=== PATIENT | male | born 1965 | race American Indian/Alaskan Native ===

== ENCOUNTER 2017-08-05 12:40 | Emergency (ER) | payer SELFPAY ==
[2017-08-05 13:28] LABS: BUN/Creatinine Ratio 11; Blood Urea Nitrogen 8 mg/dL (9-20); Calcium 9.2 mg/dL (8.4-10.2); Hemolysis Index 5
[2017-08-05 13:32] LABS: Basophils # (Auto) 0.1 K/mm3 (0.0-0.1); Eosinophils % (Auto) 0.8 % (0.0-4.3); Hematocrit 47.9 % (35.5-45.6); Hemoglobin 15.8 gm/dl (11.8-15.2); Lymphocytes # (Auto) 1.8 K/mm3 (1.2-5.4); Lymphocytes % (Auto) 37.4 % (13.4-35.0); Mean Corpuscular HGB Conc 33 % (32-34); Mean Corpuscular Hemoglobin 30 pg (28-32); Mean Corpuscular Volume 91 fl (84-94); Monocytes # (Auto) 0.4 K/mm3 (0.0-0.8); Platelet Count 164 K/mm3 (140-440); Red Blood Count 5.29 M/mm3 (3.65-5.03); Red Cell Distribution Width 12.5 % (13.2-15.2)
--- NOTE | 2017-08-05 14:31 | XRay Report ---
ROUTINE CHEST, TWO VIEWS: SOB. PA and lateral views demonstrate the heart and mediastinal contour to be of normal size and shape. The lungs are clear and fully expanded and the soft tissues and bony structures are normal. IMPRESSION: Normal study.
[2017-08-05] MEDS ORDERED: CATAPRES PO ONE (15:04)
[2017-08-05] MEDS ORDERED: GLUCOPHAGE PO ONE (15:04)
--- NOTE | 2017-08-05 15:10 | Emergency Department Report ---
HPI - General Chief Complaint: Dyspnea/Respdistress Time Seen by Provider: 08/05/17 14:43 - HPI HPI: The patient is a 52-year-old male who presents for evaluation of chest pain and dyspnea. The patient reports 3 days of on and off dyspnea and chest pain, moderate in severity, exacerbated with exertion or ambulation, improved with rest, chest pain aching in quality. The patient denies fever, neck pain, parasthesias, dyspnea, cough, hemoptysis, palpitations, dizziness, syncope, unilateral leg swelling, calf muscle pain. Patient also denies cocaine or other stimulant use, history of DVT or PE, recent immobilization, or history of cancer. ED Past Medical Hx - Past Medical History Previous Medical History?: No - Surgical History Past Surgical History?: No - Social History Smoking Status: Never Smoker Substance Use Type: Alcohol - Medications Home Medications: Home Medications Medication Instructions Recorded Confirmed Last Taken Type Hydrochlorothiazide [HCTZ] 25 mg PO QDAY #30 tablet 08/05/17 Unknown Rx metFORMIN [Glucophage] 500 mg PO QDAY #30 tablet 08/05/17 Unknown Rx ED Review of Systems ROS: Stated complaint: PANIC ATTACKS Other details as noted in HPI Constitutional: denies: fever ENT: denies: throat or neck pain Respiratory: denies: cough, reports shortness of breath Cardiovascular: reports chest pain Endocrine: denies unexplained weight loss or gain Gastrointestinal: denies: abdominal pain, nausea Genitourinary: denies: dysuria Musculoskeletal: denies: leg swelling Skin: denies: rash Neurological: denies: headache Hematological/Lymphatic: denies: easy bleeding or easy bruising Psych: denies sadness or hopelessness Physical Exam - Physical Exam Vital Signs: Vital Signs 08/05/17 12:47 Temperature 98.4 F Pulse Rate 66 Respiratory 16 Rate Blood Pressure 159/100 O2 Sat by Pulse 97 Oximetry Physical Exam: General: well-nourished, well-developed, no acute distress Head: Normocephalic, atraumatic Eyes: normal sclera ENT: Mucous membranes are pink and moist Neck: trachea midline, neck supple, No neck stiffness, no cervical adenopathy Respiratory: Breath sounds equal bilaterally, no wheezing, rales, or rhonchi Cardio: S1 and S2 present, no murmurs, rubs, gallops, capillary refill is brisk Abdomen: Normoactive bowel sounds, soft abdomen, no rigidity, no guarding or rebound tenderness Musc: No pitting edema Skin: No rash Neuro: no facial drooping, normal speech Psych: Normal affect ED Course Vital Signs 08/05/17 12:47 Temperature 98.4 F Pulse Rate 66 Respiratory 16 Rate Blood Pressure 159/100 O2 Sat by Pulse 97 Oximetry ED Medical Decision Making - Lab Data Result diagrams: 08/05/17 12:58 08/05/17 12:58 - Medical Decision Making The patient was seen and examined by myself. The patient is placed on a surveillance monitor and continuous pulse ox. On initial evaluation, the patient was found to be in no distress. EKG was negative for findings suggestive of acute cardiac infarct. Labs and imaging are obtained. Chest x-ray is negative for pneumothorax, focal consolidation, pulmonary vascular congestion, pleural effusion, or other obvious acute cardiopulmonary disease process. Lab results exhibited elevated glucose level of 317, consistent with new diagnosis of diabetes, and otherwise labs were non-concerning including levels of troponin, WBC, hemoglobin, hematocrit, electrolytes, renal function. The patient was given a tablet of metformin for treatment of his hyperglycemia, and clonidine for treatment of his elevated blood pressure. The patient was reevaluated and reported that his chest pain and dyspnea were resolved. As the patient has a ROSEMARY risk score less than 2, and a well's score less than 2, the patient is at low risk of ACS or pulmonary emboli etiology of their symptoms. The patient is stable for discharge with outpatient follow-up. The patient is given follow-up and return instructions. The patient expressed understanding and agreed with the plan. The patient is discharged in stable condition. Critical care attestation.: If time is entered above; I have spent that time in minutes in the direct care of this critically ill patient, excluding procedure time. ED Disposition Clinical Impression: New onset type 2 diabetes mellitus, Acute chest pain, Hypertensive urgency Disposition: DC-01 TO HOME OR SELFCARE Is pt being admited?: No Does the pt Need Aspirin: No Condition: Stable Instructions: Chest Pain (ED), Diabetes Mellitus Type 2 in Adults (ED), Meal Planning with Diabetes Exchanges (DC), Chronic Hypertension (ED), Hypertension ( ED) Prescriptions: Hydrochlorothiazide [HCTZ] 25 mg PO QDAY #30 tablet metFORMIN [Glucophage] 500 mg PO QDAY #30 tablet Referrals: PRIMARY CARE, [Primary Care Provider] - 3-5 Days Time of Disposition: 15:06
[2017-08-05 15:19] VITALS: BP 152/96
== END 2017-08-05 15:18 | disposition home or self-care (01) ==
LOC: ED 12:40
DX: I16.0 Hypertensive urgency (principal); R07.9 Chest pain, unspecified; E11.9 Type 2 diabetes mellitus without complications
CPT/HCPCS: 36415; 71046; 80048; 84484; 85025; 93005; 93010

== ENCOUNTER 2017-08-06 18:50 | Emergency (ER) | payer SELFPAY ==
[2017-08-06 19:13] VITALS: BP 180/107
== END 2017-08-06 21:57 | disposition left against medical advice (07) ==
LOC: ED 18:50
DX: R42 Dizziness and giddiness (principal); Z53.21 Procedure and treatment not carried out due to patient leaving prior to being seen by health care provider

== ENCOUNTER 2017-10-08 03:26 | Emergency (ER) | payer OTHER ==
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
[2017-10-08] MEDS ORDERED: ROCEPHIN IM ONE (09:48)
[2017-10-08] MEDS ORDERED: MOTRIN PO ONE (09:48)
[2017-10-08] MEDS ORDERED: XYLOCAINE 1% MPF 5 mL INFILTRATI ONE (09:48)
[2017-10-08] MEDS ORDERED: MARCAINE 0.5% INFILTRATI ONE (09:50)
[2017-10-08] MEDS ORDERED: NACL 0.9% IR ONE (09:58)
[2017-10-08] MEDS ORDERED: MARCAINE 0.25% INFILTRATI ONE ×2 (10:09→10:22)
[2017-10-08] MEDS ORDERED: BOOSTRIX IM ONE (10:21)
[2017-10-08] MEDS ORDERED: CATAPRES PO ONE (10:54)
[2017-10-08 12:37] VITALS: BP 134/92
== END 2017-10-08 13:00 | disposition home or self-care (01) ==
LOC: ED 03:26
DX: S41.111A Laceration without foreign body of right upper arm, initial encounter (principal); I10 Essential (primary) hypertension; E11.9 Type 2 diabetes mellitus without complications; F17.200 Nicotine dependence, unspecified, uncomplicated; W22.8XXA Striking against or struck by other objects, initial encounter; Y93.89 Activity, other specified; Y92.89 Other specified places as the place of occurrence of the external cause; Y99.8 Other external cause status
CPT/HCPCS: 12001; 73060; 90471; 90715; 96372; 99283; J0696

== ENCOUNTER 2020-07-31 16:37 | Emergency (ER) | payer SELFPAY ==
[2020-07-31 17:17] LABS: Basophils % (Auto) 0.7 % (0.0-1.8); Eosinophils % (Auto) 0.6 % (0.0-4.3); Hematocrit 48.3 % (35.5-45.6); Hemoglobin 16.3 gm/dl (11.8-15.2); Lymphocytes # (Auto) 2.3 K/mm3 (1.2-5.4); Lymphocytes % (Auto) 35.8 % (13.4-35.0); Mean Corpuscular HGB Conc 34 % (32-34); Mean Corpuscular Volume 90 fl (84-94); Monocytes # (Auto) 0.4 K/mm3 (0.0-0.8); Platelet Count 166 K/mm3 (140-440); Red Blood Count 5.35 M/mm3 (3.65-5.03); Red Cell Distribution Width 12.3 % (13.2-15.2)
[2020-07-31 17:39] LABS: Alanine Aminotransferase 64 units/L (7-56); Albumin 4.2 g/dL (3.9-5); BUN/Creatinine Ratio 15; Blood Urea Nitrogen 12 mg/dL (9-20); Calcium 9.7 mg/dL (8.4-10.2); Hemolysis Index 8
--- NOTE | 2020-07-31 18:12 | Emergency Department Report ---
ED Abdominal Pain HPI - General Chief Complaint: Abdominal Pain Stated Complaint: ABD PAIN AROUND TO THE BACK Source: patient Mode of arrival: Ambulatory Limitations: No Limitations - History of Present Illness MD Complaint: abdominal pain - Related Data Previous Rx's Medication Instructions Recorded Last Taken Type hydroCHLOROthiazide [HCTZ] 25 mg PO QDAY #30 tablet 08/05/17 Unknown Rx Sulfamethoxazole/Trimethoprim 1 each PO BID 10 Days #20 tablet 10/08/17 Unknown Rx [Bactrim DS TAB] traMADoL [Ultram] 50 mg PO Q6HR PRN #12 tablet 10/08/17 Unknown Rx amLODIPine 5 mg PO DAILY #30 tab 08/01/20 Unknown Rx metFORMIN [Glucophage] 500 mg PO QDAY #30 tablet 08/01/20 Unknown Rx Allergies Allergy/AdvReac Type Severity Reaction Status Date / Time No Known Allergies Allergy Unverified 08/06/17 19:12 ED Review of Systems ROS: Stated complaint: ABD PAIN AROUND TO THE BACK Other details as noted in HPI Comment: All other systems reviewed and negative ED Past Medical Hx - Past Medical History Previous Medical History?: Yes Hx Hypertension: Yes Hx Diabetes: Yes - Social History Smoking Status: Light Tobacco Smoker Substance Use Type: Alcohol (socially) - Medications Home Medications: Home Medications Medication Instructions Recorded Confirmed Last Taken Type hydroCHLOROthiazide [HCTZ] 25 mg PO QDAY #30 tablet 08/05/17 Unknown Rx Sulfamethoxazole/Trimethoprim 1 each PO BID 10 Days #20 tablet 10/08/17 Unknown Rx [Bactrim DS TAB] traMADoL [Ultram] 50 mg PO Q6HR PRN #12 tablet 10/08/17 Unknown Rx amLODIPine 5 mg PO DAILY #30 tab 08/01/20 Unknown Rx metFORMIN [Glucophage] 500 mg PO QDAY #30 tablet 08/01/20 Unknown Rx ED Physical Exam - General Limitations: No Limitations General appearance: alert, in no apparent distress - Head Head exam: Present: atraumatic, normocephalic - Eye Eye exam: Present: normal appearance, PERRL, EOMI Pupils: Present: normal accommodation - ENT ENT exam: Present: mucous membranes moist - Neck Neck exam: Present: normal inspection - Respiratory Respiratory exam: Present: normal lung sounds bilaterally. Absent: respiratory distress - Cardiovascular Cardiovascular Exam: Present: regular rate, normal rhythm. Absent: systolic murmur, diastolic murmur, rubs, gallop - GI/Abdominal GI/Abdominal exam: Present: soft, tenderness (lower abdominal region), normal bowel sounds - Rectal Rectal exam: Present: deferred - Extremities Exam Extremities exam: Present: normal inspection - Back Exam Back exam: Present: normal inspection. Absent: CVA tenderness (R), CVA tenderness (L) - Neurological Exam Neurological exam: Present: alert, oriented X3, CN II-XII intact, normal gait, reflexes normal. Absent: motor sensory deficit - Expanded Neurological Exam Expanded Neurological exam: Absent: ataxia Patient oriented to: Present: person, place, time Speech: Present: fluid speech Cranial nerves: EOM's Intact: Normal, Gag Reflex: Normal Cerebellar function: Finger to Nose: Normal, Romberg: Normal Motor strength exam: RUE: 5, LUE: 5, RLE: 5, LLE: 5 Best Eye Response ([place]): (4) open spontaneously Best Motor Response ([place]): (6) obeys commands Best Verbal Response (Edson): (5) oriented Edson Total: 15 - Psychiatric Psychiatric exam: Present: normal affect, normal mood - Skin Skin exam: Present: warm, dry, intact, normal color. Absent: rash ED Course Vital Signs 07/31/20 07/31/20 16:51 23:33 Temperature 97.6 F Pulse Rate 60 54 L Respiratory 20 16 Rate Blood Pressure 162/118 169/108 O2 Sat by Pulse 94 97 Oximetry ED Medical Decision Making - Lab Data Result diagrams: 07/31/20 16:59 07/31/20 16:59 - Radiology Data Radiology results: [place] [address] Cat Scan Report Signed Patient: DELMY DA SILVA MR#: [id number] : 1965 Acct:[id number] Age/Sex: 54 / M ADM Date: 07/31/20 Loc: ED Attending Dr: Ordering Physician: POONAM PEÑA Date of Service: 07/31/20 Procedure(s): CT abdomen pelvis w con Accession Number(s): [id number] cc: POONAM PEÑA CT ABDOMEN AND PELVIS WITH CONTRAST INDICATION / CLINICAL INFORMATION: Patient complains of lower abdominal pain. TECHNIQUE: Axial CT images were obtained through the abdomen and pelvis after IV contrast. All CT scans at this location are performed using CT dose reduction for ALARA by means of automated exposure control. COMPARISON: None available. FINDINGS: LOWER CHEST: No significant abnormality. LIVER: No significant abnormality. GALLBLADDER: No significant abnormality. BILE DUCTS: No significant abnormality. PANCREAS: No significant abnormality. SPLEEN: No significant abnormality. ADRENALS: No significant abnormality. RIGHT KIDNEY / URETER: No significant abnormality. LEFT KIDNEY / URETER: Minimally complex left renal cyst measures 5.4 cm with a fairly thin calcified septation. No enhancing nodules noted. STOMACH / SMALL BOWEL: No significant abnormality. No mechanical bowel obstruction. COLON: Colonic diverticulosis without evidence of diverticulitis. APPENDIX: No significant abnormality. PERITONEUM: No free fluid. No free air. No fluid collection. LYMPH NODES: No significant adenopathy. AORTA / ARTERIES: Moderate atherosclerotic calcification without acute abnormality. IVC / VEINS: No significant abnormality. URINARY BLADDER: Thickened urinary bladder. REPRODUCTIVE ORGANS: Enlarged prostate measures 5.1 cm. ADDITIONAL FINDINGS: None. SKELETAL SYSTEM: Multilevel degenerative changes are noted of the spine with mild retrolisthesis and disc bulge at the L5-S1 level. No aggressive osseous lesions. IMPRESSION: 1. Thickened urinary bladder wall, may be secondary to mild bladder outlet obstruction from the enlarged prostate. Clinical correlation with UA to rule out infectious process is recommended. 2. Moderate colonic diverticulosis without evidence of diverticulitis. 3. Minimally complex left renal cyst measures 5.4 cm. Consider Bosniak 2 classification. Signer Name: Pietro Martinez MD Signed: 07/31/2020 10:11 PM Workstation Name: [id number] Transcribed By: Dictated By: PIETRO MARTINEZ Electronically Authenticated By: PIETRO MARTINEZ Signed Date/Time: 07/31/202210 DD/ 58 TD/TT: - Medical Decision Making 1. Abdominal pain this patient presents with abdominal pain of unclear etiology. A CT scan was performed to evaluate for potential causes of the abdominal pain, however, neither the clinical exam nor the CT has identified an emergent etiology for the abdominal pain. Specifically, given the benign exam, the laboratory studies, and unremarkable CT, I have a very low suspicion for appendicitis, ischemic bowel, bowel perforation, or any other life threatening disease. I have discussed with the patient the level of uncertainty with undifferentiated abdominal pain and clearly explained the need to follow-up as noted on the discharge instructions, or return to the Emergency Department immediately if the pain worsens, develops fever, persistent and uncontrollable vomiting, or for any new symptoms or concerns. 2. Hypertension Male reports having a possible history of hypertension that will take any medication child utilize herbs and and various rules for treatment control blood pressure has remained relatively asymptomatic and neurologically stable during his hospital visit blood pressure is running from 160s over the 100s. Plan is to start him on amlodipine follow-up primary care provider for definitive treatment he is remained asymptomatic during his entire ED visit 3. Diabetes New onset diabetes mellitus restarted on p.o. medications in the form of Metformin which she will take 1 p.o. daily and follow-up with primary care provider for definitive treatment and medication adjustments and a hemoglobin A1c. He did express an understanding of the importance of taking his diabetic medications and also patient education for blood glucose monitoring and control as well as the appropriate treatment repeat blood sugar before discharge was 270 Critical care attestation.: If time is entered above; I have spent that time in minutes in the direct care of this critically ill patient, excluding procedure time. ED Disposition Clinical Impression: Abdominal pain, Diabetes, Hypertension Disposition: DC-01 TO HOME OR SELFCARE Is pt being admited?: No Does the pt Need Aspirin: No Condition: Stable Instructions: Diabetes Mellitus Type 2 in Adults (ED), Hypertension (ED), Type 2 Diabetes Mellitus, Diagnosis, Adult, Hypertension, Adult, Diabetes Mellitus and Exercise, Diabetes Mellitus and Nutrition, Adult, Form - Diabetes Action Plan, Pain Without a Known Cause, Diabetes Mellitus and Standards of Medical Care, Type 2 Diabetes Mellitus, Self Care, Adult, Tips for Eating Away From Home If You Have Diabetes, Managing Your Hypertension Prescriptions: amLODIPine 5 mg PO DAILY #30 tab metFORMIN [Glucophage] 500 mg PO QDAY #30 tablet Referrals: PRIMARY CARE, [Primary Care Provider] - 3-5 Days [facility] [Provider Group] - 3-5 Days [facility] [Outside] - 3-5 Days
--- NOTE | 2020-07-31 22:16 | Cat Scan Report ---
CT ABDOMEN AND PELVIS WITH CONTRAST INDICATION / CLINICAL INFORMATION: Patient complains of lower abdominal pain. TECHNIQUE: Axial CT images were obtained through the abdomen and pelvis after IV contrast. All CT scans at this location are performed using CT dose reduction for ALARA by means of automated exposure control. COMPARISON: None available. FINDINGS: LOWER CHEST: No significant abnormality. LIVER: No significant abnormality. GALLBLADDER: No significant abnormality. BILE DUCTS: No significant abnormality. PANCREAS: No significant abnormality. SPLEEN: No significant abnormality. ADRENALS: No significant abnormality. RIGHT KIDNEY / URETER: No significant abnormality. LEFT KIDNEY / URETER: Minimally complex left renal cyst measures 5.4 cm with a fairly thin calcified septation. No enhancing nodules noted. STOMACH / SMALL BOWEL: No significant abnormality. No mechanical bowel obstruction. COLON: Colonic diverticulosis without evidence of diverticulitis. APPENDIX: No significant abnormality. PERITONEUM: No free fluid. No free air. No fluid collection. LYMPH NODES: No significant adenopathy. AORTA / ARTERIES: Moderate atherosclerotic calcification without acute abnormality. IVC / VEINS: No significant abnormality. URINARY BLADDER: Thickened urinary bladder. REPRODUCTIVE ORGANS: Enlarged prostate measures 5.1 cm. ADDITIONAL FINDINGS: None. SKELETAL SYSTEM: Multilevel degenerative changes are noted of the spine with mild retrolisthesis and disc bulge at the L5-S1 level. No aggressive osseous lesions. IMPRESSION: 1. Thickened urinary bladder wall, may be secondary to mild bladder outlet obstruction from the enlar ged prostate. Clinical correlation with UA to rule out infectious process is recommended. 2. Moderate colonic diverticulosis without evidence of diverticulitis. 3. Minimally complex left renal cyst measures 5.4 cm. Consider Bosniak 2 classification. Signer Name: Pietro Galarza MD Signed: 07/31/2020 10:11 PM Workstation Name: [id number]
[2020-07-31 23:34] VITALS: BP 169/108
== END 2020-08-01 00:25 | disposition home or self-care (01) ==
LOC: ED 16:37
DX: R10.9 Unspecified abdominal pain (principal); I10 Essential (primary) hypertension; E11.9 Type 2 diabetes mellitus without complications; F17.200 Nicotine dependence, unspecified, uncomplicated; Z79.899 Other long term (current) drug therapy
CPT/HCPCS: 36415; 74177; 80053; 82805; 82962; 83690; 85025; 99284; Q9967